=== PATIENT | male | born 1950 | race Caucasian/White ===

== ENCOUNTER → 2019-06-22 | Outpatient (CLI) | payer OTHER ==
[~2019-06-22] MED LIST: CARDIZEM30 MG PO; FLOMAX0.4 MG PO; FOLIC ACID1 MG PO; LEVO-T75 MCG PO; LIPITOR 20 MG T20 M1 PO; METHOTREXATE 22.5 M1 PO; PROSCAR 5MG TABL5 M1 PO; RESTORIL15 MG PO; SERTRALINE HCL50 MG PO
== END ==
LOC: M.CT 10:48
DX: Z13.6 Encounter for screening for cardiovascular disorders (principal)

== ENCOUNTER → 2019-07-13 | Outpatient (CLI) | payer MEDICARE, OTHER ==
[~2019-07-13] VITALS: Ht 180.3 cm; Wt 97.5 kg
[2019-07-13 11:08] VITALS: BP 144/88
[2019-07-13 11:09] LABS: MCH 29.1 pg (26.0-34.0); MCHC 33.3 g/dL (28.0-37.0); MCV 87.4 fL (80.0-100.0); MPV 8.7 fl. (7.2-11.1); RBC 4.81 mil/uL (4.50-6.00); RDW-CV 18.7 % (10.5-14.5); WBC 9.9 thou/uL (4.0-11.0)
[2019-07-13 11:24] LABS: ANION GAP 6 mmol/L (7-16); APTT 29.7 Seconds (25.0-31.3); BUN 14 mg/dL (7-18); CHLORIDE 105 mmol/L (98-107); CO2 29 mmol/L (21-32); CREATININE 1.2 mg/dL (0.6-1.3); GLUCOSE 107 mg/dL (70-99); INR 1.1; POTASSIUM 3.9 mmol/L (3.5-5.1); PROTIME 10.8 Seconds (9.20-11.50); SODIUM 140 mmol/L (136-145)
[2019-07-13 11:28] LABS: ALBUMIN 3.8 g/dL (3.4-5.0); ALKALINE PHOSPHATASE 86 U/L (46-116); CHOLESTEROL 134 mg/dL (<200); HDL CHOLESTEROL 37 mg/dL (>40); LDL CHOLESTEROL 84 mg/dL (<100); SGOT 19 U/L (15-37); SGPT 25 U/L (30-65); TC:HDL 3.6 Ratio (Not establshd); TOTAL BILIRUBIN 0.8 mg/dL (<0.1-1.0); TOTAL PROTEIN 7.5 g/dL (6.4-8.2); TRIGLYCERIDE 66 mg/dL (<150); VLDL 13 mg/dL (<40)
[2019-07-13 11:35] LABS: SERUM ASSESSMENT Clear
--- NOTE | 2019-07-13 17:30 | EKG ---
[place] [address] ELECTROCARDIOGRAM REPORT Name: DAMISAMUEL Sherin Room: [facility]#: [id number] Admission: 07/13/19 Attend Phys: Memo Childress MD Discharge: Date of : 46 Report #: [id number] THIS REPORT FOR: //name// [facility] Test Date: 2019-07-13 Test Time: 11:16:25 Pat Name: SAMUEL LOMAX Department: Room: Gender: M [employer]el [employer]ic: : 1950 Requested By: Memo Childress Order Number: [id number] Rosemary MD: Memo Childress Measurements Intervals [place] Rate: 74 P: -15 MA: 144 QRS: -33 QRSD: 85 T: 48 QT: 400 QTc: 444 Interpretive Statements Sinus rhythm Left axis deviation No previous ECG available for comparison Electronically Signed On 07-13-2019 17:30:38 CERTIFIED LEGAL SECRETARY SPECIALIST by Memo Childress [email or web address] <ELECTRONICALLY SIGNED> By: Memo Childress MD, [facility] 07/13/19 1730 1116 [id number] Memo Childress MD, FACC /EPI
== END | disposition home or self-care (01) ==
LOC: M.CL 10:02
PROVIDERS: Internal Medicine Cardiovascular Disease
DX: R06.00 Dyspnea, unspecified (principal); Z53.8 Procedure and treatment not carried out for other reasons; E78.00 Pure hypercholesterolemia, unspecified; E03.9 Hypothyroidism, unspecified; I25.10 Atherosclerotic heart disease of native coronary artery without angina pectoris; F41.9 Anxiety disorder, unspecified; I73.9 Peripheral vascular disease, unspecified; M06.9 Rheumatoid arthritis, unspecified; Z82.49 Family history of ischemic heart disease and other diseases of the circulatory system; Z98.890 Other specified postprocedural states; Z96.651 Presence of right artificial knee joint; Z87.891 Personal history of nicotine dependence; Z79.899 Other long term (current) drug therapy; Z88.8 Allergy status to other drugs, medicaments and biological substances; Z79.01 Long term (current) use of anticoagulants